=== PATIENT | male | born 1945 | race Caucasian/White ===

== ENCOUNTER 2017-01-01 15:33 | Outpatient (CLI) ==
[2017-01-01 15:47] VITALS: BMI 24.3
== END 2017-01-01 15:34 ==
LOC: AMBL 15:33
PROVIDERS: ATTEND Internal Medicine
DX: I48.91 Unspecified atrial fibrillation (principal); R00.0 Tachycardia, unspecified; I10 Essential (primary) hypertension

== ENCOUNTER 2017-01-01 15:42 | Emergency (ER) ==
[2017-01-01 15:47] VITALS: BP 110/91; TEMP 99.2; BMI 24.3
[2017-01-01 16:26] LABS: BASOPHILS # (AUTO) 0.1 K/uL (0-0.2); BASOPHILS % (AUTO) 0.9 % (0.0-3.0); EOSINOPHILS # (AUTO) 0.4 K/ul (0.0-0.7); EOSINOPHILS % (AUTO) 4.1 % (0.0-7.0); HEMATOCRIT 46.2 % (42.0-52.0); HEMOGLOBIN 15.9 g/dl (14.0-18.0); IMMATURE GRANULOCYTE % (AUTO) 0.3 % (0.0-5.0); LYMPHOCYTES # (AUTO) 1.2 K/uL (0.60-3.4); LYMPHOCYTES % (AUTO) 13.1 (10.0-50.0); MEAN CORPUSCULAR HEMOGLOBIN 29.8 pg (27.0-31.0); MEAN CORPUSCULAR HGB CONC 34.4 (31.8-35.4); MEAN CORPUSCULAR VOLUME 86.5 fl (80.0-94.0); MONOCYTES # (AUTO) 1.1 K/uL (0.4-2.0); MONOCYTES % (AUTO) 12.4 (0-10); NEUTROPHILS # (AUTO) 6.2 K/ul (2.0-6.9); NEUTROPHILS % (AUTO) 69.2; PLATELET COUNT 203 10^3/uL (140-440); RED BLOOD COUNT 5.34 10^6/ul (4.70-6.10); WHITE BLOOD COUNT 8.92 K/ul (4.2-10.2)
--- NOTE | 2017-01-01 16:37 | DI ---
Examination: Single radiographic image of the chest. Comparison: 03/19/2015. Reason for study: Cough. FINDINGS: No pneumothorax, pleural effusion, or focal consolidation. The cardiac silhouette is not enlarged. Impression: No acute cardiopulmonary findings.
[2017-01-01 16:49] LABS: ALBUMIN 3.3 g/dL (3.4-5.0); ALBUMIN/GLOBULIN RATIO 0.89; ANION GAP 13.9; BILIRUBIN,TOTAL 0.53 mg/dL (0.00-1.20); BUN/CREATININE RATIO 14.02; CALCIUM 8.8 mg/dL (8.2-10.2); CREATININE 1.64 mg/dL (0.60-1.10); POTASSIUM 3.9 mmol/L (3.5-5.1); TROPONIN I 0.018 ng/ml (0.0000-0.4000)
--- NOTE | 2017-01-01 17:07 | ED.PDOC ---
General ED Provider: Dr. JUDI HERNÁNDEZ Chief Complaint: Palpitations Stated Complaint: A fib Time Seen by Physician: 15:47 (sent from skilled nursing for afib evaluation with RVR on arrival in sinus not tachycardic) Mode of Arrival: Ambulance Information Source: Patient, [facility], EMT Exam Limitations: No limitations Primary Care Provider: MISTY HIGH Nursing and Triage Documentation Reviewed and Agree: Yes (no chest pain) Cardiovascular Complaint Exam - Palpitations Complaint/Exam Symptoms Are: Resolved Initial Severity: Mild Current Severity: None Character: Reports: Irregular, Pounding Aggravating: Reports: None Associated Signs and Symptoms: Denies: Lightheadedness, Dizziness, Syncope, Chest pain, Shortness of breath, Diaphoresis, Nausea, Vomiting Related Surgical History: Reports: None Cardiac Risk Factors: Reports: Hypertension, Elevated lipids Pulmonary Embolism Risk Factors: Reports: None Atrial Fibrillation Risk Factors: Reports: Hypertension Thyroid Exam: Normal Differential Diagnoses: Medication induced, Paroxysmal SVT Quality Indicators for AMI: EKG in 10min. Quality Indicators for Cardiac Chest Pain: EKG in 10min. Quality Indicator For Non-Traumatic Chest Pain/Syncope: EKG Performed Review of Systems - Review Of Systems Constitutional: Reports: No symptoms Eyes: Reports: No symptoms Ears, Nose, Mouth, Throat: Reports: No symptoms Respiratory: Reports: No symptoms Cardiac: Reports: Palpitations GI: Reports: No symptoms : Reports: No symptoms Musculoskeletal: Reports: No symptoms Skin: Reports: No symptoms Neurological: Reports: No symptoms Endocrine: Reports: No symptoms Hematologic/Lymphatic: Reports: No symptoms All Other Systems: Reviewed and Negative Past Medical History - Past Medical History Previously Healthy: No Endocrine: Reports: Dyslipidemia Cardiovascular: Reports: Hypertension Respiratory: Reports: None Hematological: Reports: None Gastrointestinal: Reports: None Genitourinary: Reports: None Neuro/Psych: Reports: None Musculoskeletal: Reports: None Cancer: Reports: None - Surgical History General Surgical History: Reports: None - Family History Family History: Reports: None - Social History Smoking Status: Unknown if ever smoked Hx Substance Use: No Alcohol Screening: None Physical Exam - Physical Exam Appearance: Well-appearing, No pain distress, Well-nourished Eyes: MISSY, EOMI, Conjunctiva clear ENT: Ears normal, Nose normal, Oropharynx normal Respiratory: Airway patent, Breath sounds clear, Breath sounds equal, Respirations nonlabored Cardiovascular: RRR, Pulses normal, No rub, No murmur GI/: Soft, Nontender, No masses, Bowel sounds normal, No Organomegaly Musculoskeletal: Normal strength, ROM intact, No edema, No calf tenderness Skin: Warm, Dry, Normal color Neurological: Sensation intact, Motor intact, Reflexes intact, Cranial nerves intact, Alert, Oriented Psychiatric: Affect appropriate, Mood appropriate Interpretation - Radiology Interpretation Radiology Interpretation By: Radiologist Radiology Results: No acute changes - Paradi Tender Rate: Normal Rhythm: Sinus Ectopy: None - EKG Interpretation Rate: Normal Rhythm: Sinus Ectopy: None Premier: NL ST Segment: Normal Critical Care Note - Critical Care Note Total Time (mins): 0 Course - Course Hematology/Chemistry: 01/01/17 16:10 01/01/17 16:10 Orders, Labs, Meds: Lab Review 01/01/17 16:10 WBC 8.92 RBC 5.34 Hgb 15.9 Hct 46.2 MCV 86.5 MCH 29.8 MCHC 34.4 RDW Coeff of Caral 12.6 Plt Count 203 Immature Gran % (Auto) 0.3 Neut % (Auto) 69.2 Lymph % (Auto) 13.1 Stearns % (Auto) 12.4 H Eos % (Auto) 4.1 Baso % (Auto) 0.9 Immature Gran # (Auto) 0.0 Neut # 6.2 Lymph # 1.2 Stearns # 1.1 Eos # 0.4 Baso # 0.1 Sodium 140 Potassium 3.9 Chloride 104 Carbon Dioxide 26 Anion Gap 13.9 BUN 23 H Creatinine 1.64 H Estimated GFR (MDRD) 41.00 BUN/Creatinine Ratio 14.02 Glucose 112 Calcium 8.8 Total Bilirubin 0.53 AST 20 ALT 9 L Alkaline Phosphatase 119 Total Creatine Kinase 102 Troponin I 0.0180 Total Protein 7.0 Albumin 3.3 L Globulin 3.7 Albumin/Globulin Ratio 0.89 Orders Category Date Time Status EKG-(ED ONLY) Stat CARDIO 01/01/17 16:05 Completed CBC W/ AUTO DIFF Stat LAB 01/01/17 16:10 Completed COMPREHENSIVE METABOLIC PANEL Stat LAB 01/01/17 16:10 Completed CREATINE KINASE Stat LAB 01/01/17 16:10 Completed TROPONIN I Stat LAB 01/01/17 16:10 Completed CHEST, 1V AP ONLY Stat RADS 01/01/17 16:05 Completed Vital Signs: Temp Pulse Resp BP Pulse Ox 01/01/17 15:43 99.2 F 116 H 18 110/91 H 94 L NGOC Risk Score NGOC Risk Score: Risk Score Odds of by 30D 0 0.1 (0.1-0.2) 1 0.3 (0.2-0.3) 2 0.4 (0.3-0.5) 3 0.7 (0.6-0.9) 4 1.2 (1.0-1.5) 5 2.2 (1.9-2.6) 6 3.0 (2.5-3.6) 7 4.8 (3.8-6.1) Departure - Departure Time of Disposition: 17:09 Disposition: HOME SELF-CARE Discharge Problem: Renal insufficiency Instructions: Chronic Kidney Disease (ED) Condition: Good Pt referred to PMD for follow-up: No Additional Instructions: Please call your Family Physician as soon as possible to schedule a follow-up appointment. Allergies/Adverse Reactions: Allergies No Known Allergies Allergy (Verified 01/01/17 15:56) Home Medications: Ambulatory Orders Aspirin [Aspirin Chewable] 81 mg PO DAILY 03/19/15 Donepezil HCl [Aricept] 10 mg PO DAILY 03/19/15 Acetaminophen [8 Hour Pain Relief] 2 tab PO PRN PRN 01/01/17 Amlodipine Besylate [Norvasc] 5 mg PO DAILY 01/01/17 Atorvastatin Calcium [Lipitor] 40 mg PO DAILY 01/01/17 Bisacodyl [Dulcolax] 10 mg RC PRN PRN 01/01/17 Cholecalciferol (Vitamin D3) [Vitamin D] 1,000 unit PO BID 01/01/17 Furosemide [Lasix Tab] 20 mg PO QDAC 01/01/17 Magnesium Hydroxide [Milk of Magnesia] 30 ml PO PRN PRN 01/01/17 Memantine HCl [Namenda Xr] 28 mg PO DAILY 01/01/17 Na Phos,M-B/Na Phos,Di-Ba [Fleet Enema] 133 ml RC PRN PRN 01/01/17 Potassium Chloride [K-Tab ER] 10 meq PO DAILY 01/01/17 Disposition Discussed With: Patient
== END 2017-01-01 17:55 | disposition home or self-care (01) ==
LOC: ED 15:42
DX: N28.9 Disorder of kidney and ureter, unspecified (principal); I10 Essential (primary) hypertension; E78.5 Hyperlipidemia, unspecified; R00.2 Palpitations; Z79.899 Other long term (current) drug therapy
CPT/HCPCS: 36415; 80053; 82550; 84484; 85025; 93005; 93010; 99283